=== PATIENT | female | born 2000 | race African-American/Black ===

== ENCOUNTER 2018-03-25 16:51 | Emergency (ER) | payer BC ==
[~2018-03-25] VITALS: Ht 160 cm; Wt 44.6 kg
[2018-03-25 17:08] VITALS: BP 107/65
== END 2018-03-25 23:00 | disposition left against medical advice (07) ==
LOC: ER 16:51
DX: Z53.21 Procedure and treatment not carried out due to patient leaving prior to being seen by health care provider (principal); J45.909 Unspecified asthma, uncomplicated

== ENCOUNTER 2019-06-09 15:20 | Emergency (ER) | payer MEDICAID ==
[~2019-06-09] VITALS: Ht 160 cm; Wt 48.0 kg
[2019-06-09] MEDS ORDERED: IBUPROFEN 400MG TABLET PO ONE (16:15)
[2019-06-09] MEDS ORDERED: TRAMADOL 50MG TABLET PO ONE (16:15)
[2019-06-09] MEDS ORDERED: ONDANSETRON 4MG ODT PO ONE (16:15)
[2019-06-09] MEDS ORDERED: LIDOCAINE HCL/PF 1% 10 MG/ML 5ML VIAL IJ ONE (17:00)
[2019-06-09 17:52] VITALS: BP 110/73
== END 2019-06-09 17:55 | disposition home or self-care (01) ==
LOC: ER 15:20
DX: S01.511A Laceration without foreign body of lip, initial encounter (principal); S80.12XA Contusion of left lower leg, initial encounter; S80.11XA Contusion of right lower leg, initial encounter; S00.83XA Contusion of other part of head, initial encounter; J45.909 Unspecified asthma, uncomplicated; V43.52XA Car driver injured in collision with other type car in traffic accident, initial encounter; W22.11XA Striking against or struck by driver side automobile airbag, initial encounter; Y93.89 Activity, other specified; Y92.488 Other paved roadways as the place of occurrence of the external cause
CPT/HCPCS: 12011; 70486; 73590; 81025; 99284; J3490; Q0162

== ENCOUNTER 2019-06-14 12:06 | Emergency (ER) | payer MEDICAID ==
[~2019-06-14] VITALS: Ht 160 cm; Wt 45.3 kg
[2019-06-14 12:14] VITALS: BP 86/55
== END 2019-06-14 14:31 | disposition home or self-care (01) ==
LOC: ER 12:06
DX: Z48.02 Encounter for removal of sutures (principal)
CPT/HCPCS: 99281

== ENCOUNTER 2022-05-08 18:17 | Emergency (ER) | payer SELFPAY ==
[~2022-05-08] VITALS: Ht 160 cm; Wt 75.0 kg
[2022-05-08 20:20] LABS: HEMATOCRIT. 39.1 % (36.0-48.0); HEMOGLOBIN. 13.4 g/dL (12.0-16.0); MEAN CORPUSCULAR HEMOGLOBIN 33.6 pg (28.0-32.0); MEAN CORPUSCULAR VOLUME 97.9 fL (81.0-99.0); MEAN PLATELET VOLUME 9.2 fl (7.4-10.4); PLATELET 275 x1000/uL (130-400); RED BLOOD CELL COUNT 3.99 mill/uL (4.2-5.4); RED CELL DISTRIBUTION WIDTH 12.8 % (11.6-14.6)
[2022-05-08 20:24] LABS: CHLORIDE 104 mEq/L (98-107)
[2022-05-08 20:51] LABS: B-HCG QUANTITATIVE 22664 mIU/mL (<3)
[2022-05-08] MEDS ORDERED: SODIUM CHLORIDE 0.9% 1,000 ML IV ONE (21:45)
[2022-05-08] MEDS ORDERED: ONDANSETRON HCL 4MG TABLET PO ONE (21:45)
[2022-05-08] MEDS ORDERED: ACETAMINOPHEN 325MG TABLET PO ONE (21:45)
[2022-05-08 22:52] LABS: PLATELET ESTIMATE NORMAL
[2022-05-08 23:15] LABS: CLARITY URINE CLOUDY (CLEAR); COLOR URINE YELLOW (YELLOW); KETONES URINE 4+ (NEGATIVE); LEUKOCYTE ESTERASE URINE 1+ (NEGATIVE); NITRITE URINE POSITIVE (NEGATIVE); OCCULT BLOOD URINE NEGATIVE (NEGATIVE); PROTEIN URINE TRACE (NEGATIVE); SPECIFIC GRAVITY URINE 1.031 (1.005-1.030)
[2022-05-09 03:00] VITALS: BP 108/74
[2022-05-09] MEDS ORDERED: CEPHALEXIN 250MG CAPSULE PO ONE (04:45)
[2022-05-09] MEDS ORDERED: ONDANSETRON 4MG ODT PO ONE (09:00)
[2022-05-09] MEDS ORDERED: ONDA4TAB50 MT (10:52)
[2022-05-09] MEDS ORDERED: CEPH500C2 MT (10:52)
== END 2022-05-09 11:30 | disposition home or self-care (01) ==
LOC: ER 18:17
DX: O20.0 Threatened abortion (principal); Z3A.01 Less than 8 weeks gestation of pregnancy; O99.511 Diseases of the respiratory system complicating pregnancy, first trimester
CPT/HCPCS: 36415; 72195; 74181; 76801; 80053; 81003; 81025; 84702; 85025; 86850; 86900; 86901; 96360; 99284; J7030; Q0162; Z7610

== ENCOUNTER 2022-11-23 06:10 | Inpatient (IN) | payer MEDICAID ==
[~2022-11-23] VITALS: Ht 167.6 cm; Wt 73.0 kg
[~2022-11-23 06:10] MED LIST: CEPH500C2 MT; ONDA4TAB50 MT
[2022-11-23] MEDS ORDERED: MORPHINE SULFATE 4 MG/ML CPJ (NOT FOR IM USE) IV STA (06:39)
[2022-11-23] MEDS ORDERED: ONDANSETRON HCL 4MG/2ML INJ IV STA (06:39)
[2022-11-23] MEDS ORDERED: SODIUM CHLORIDE 0.9% 500 ML IV ONE (06:45)
[2022-11-23 07:02] LABS: BASOPHILS % 0.4 % (0.0-2.0); EOSINOPHILS % 0.9 % (0.0-5.0); HEMATOCRIT. 28.6 % (36.0-48.0); HEMOGLOBIN. 9.3 g/dL (12.0-16.0); LYMPHOCYTES % 33.5 % (20.0-50.0); MEAN CORPUSCULAR HEMOGLOBIN 28.8 pg (28.0-32.0); MEAN CORPUSCULAR HGB CONC 32.5 g/dL (31.0-37.0); MEAN CORPUSCULAR VOLUME 88.5 fL (81.0-99.0); MEAN PLATELET VOLUME 9.5 fl (7.4-10.4); MONOCYTES % 10.7 % (2.0-8.0); NEUTROPHILS % 54.5 % (40.0-76.0); PLATELET 212 x1000/uL (130-400); RED BLOOD CELL COUNT 3.23 mill/uL (4.2-5.4); RED CELL DISTRIBUTION WIDTH 15.3 % (11.6-14.6); WHITE BLOOD COUNT 8.3 x1000/uL (4.5-11.0)
[2022-11-23 07:09] LABS: CHLORIDE 110 mEq/L (98-107); INDEX HEMOLYSI 1 (1-3); INDEX ICTERIC 1 (1-4); INDEX LIPEMIC 1 (1-3); SODIUM 139 mEq/L (136-145)
[2022-11-23 07:17] LABS: ALANINE AMINOTRANSFERASE 11 IU/L (13-61); ALBUMIN 2.5 g/dL (3.4-5.0); ASPARTATE AMINOTRANSFERASE 13 IU/L (15-37); BILIRUBIN TOTAL 0.4 mg/dL (0.1-1.0); CALCIUM 8.8 mg/dL (8.5-10.1); CARBON DIOXIDE 24 mEq/L (21-32); CREATININE 0.7 mg/dL (0.6-1.3); GLUCOSE 85 mg/dL (70-105); PROTEIN TOTAL 6.1 g/dL (6.0-8.3); UREA NITROGEN BLOOD 12 mg/dL (7-21)
[2022-11-23] MEDS ORDERED: METOCLOPRAMIDE HCL 10MG/2ML VIAL IV ONE (09:00)
[2022-11-23] MEDS: LACTATED RINGERS 1,000 ML IV SCH (11:00)
[2022-11-23] MEDS ORDERED: LIDOCAINE HCL 1% 20ML VIAL (Pyxis) INJ INFIL SCH (11:00)
[2022-11-23] MEDS ORDERED: MAGNESIUM 4 G PREMIX 100 ML IV NR (11:00)
[2022-11-23] MEDS ORDERED: OXYTOCIN 30 UNITS/500ML NS PMX 500 ML IV SCH (11:00)
[2022-11-23] MEDS ORDERED: NALOXONE HCL 0.4 MG/ML 1ML VIAL IM PRN (11:00)
[2022-11-23] MEDS ORDERED: LABETALOL HCL 5MG/ML VIAL 20ML IV PRN ×3 (11:15)
[2022-11-23] MEDS ORDERED: HYDRALAZINE 20MG/ML VIAL IV PRN (11:15)
[2022-11-23] MEDS: MAGNESIUM 20 G PREMIX (L & D) 500 ML IV SCH ×2 (11:38→21:15)
[2022-11-23 12:40] LABS: CLARITY URINE CLEAR (CLEAR); COLOR URINE YELLOW (YELLOW); GLUCOSE URINE NEGATIVE (NEGATIVE); KETONES URINE NEGATIVE (NEGATIVE); LEUKOCYTE ESTERASE URINE NEGATIVE (NEGATIVE); NITRITE URINE NEGATIVE (NEGATIVE); OCCULT BLOOD URINE TRACE (NEGATIVE); PROTEIN URINE 4+ (NEGATIVE); UROBILINOGEN URINE 0.2 E.U./dL (0.2-1.0)
[2022-11-23 12:52] LABS: BACTERIA URINE FEW; RBC URINE 0-2 /hpf (0-2); SQUAMOUS EPITHELIAL CELL URINE 1+ /lpf (RARE/1+); YEAST URINE NONE SEEN
[2022-11-23] MEDS ORDERED: BETAMETHASONE ACET/BETAMET 30 MG/5 ML VIAL IM SCH (13:00)
[2022-11-23 15:09] LABS: BASOPHILS % 0.3 % (0.0-2.0); EOSINOPHILS % 0.4 % (0.0-5.0); HEMOGLOBIN. 8.9 g/dL (12.0-16.0); LYMPHOCYTES % 20.1 % (20.0-50.0); MEAN CORPUSCULAR HEMOGLOBIN 29.3 pg (28.0-32.0); MEAN CORPUSCULAR HGB CONC 32.9 g/dL (31.0-37.0); MEAN CORPUSCULAR VOLUME 88.8 fL (81.0-99.0); MEAN PLATELET VOLUME 9.7 fl (7.4-10.4); MONOCYTES % 8.5 % (2.0-8.0); NEUTROPHILS % 70.7 % (40.0-76.0); PLATELET 205 x1000/uL (130-400); RED BLOOD CELL COUNT 3.04 mill/uL (4.2-5.4); RED CELL DISTRIBUTION WIDTH 15.2 % (11.6-14.6); WHITE BLOOD COUNT 8.4 x1000/uL (4.5-11.0)
[2022-11-23 15:19] LABS: D-DIMER 2.55 mg/L FEU (<0.50); INR 0.9; PARTIAL THROMBOPLASTIN TIME 24.9 sec (23.4-31.0); PROTHROMBIN TIME 9.4 sec (9.6-11.0)
[2022-11-23 15:20] LABS: *AMPHETAMINES SCREEN URINE NEGATIVE (NEGATIVE); *BARBITURATES SCREEN URINE NEGATIVE (NEGATIVE); *BENZODIAZEPINES SCREEN URINE NEGATIVE (NEGATIVE); *COCAINE SCREEN URINE NEGATIVE (NEGATIVE); CANNABINOID URINE SCREEN NEGATIVE (NEGATIVE); ECSTASY MDMA SCREEN URINE NEGATIVE (NEGATIVE); METHADONE URINE SCREEN NEGATIVE (NEGATIVE); PHENCYCLIDINE URINE SCREEN NEGATIVE (NEGATIVE)
[2022-11-23 15:22] LABS: CHLORIDE 109 mEq/L (98-107); INDEX HEMOLYSI 1 (1-3); INDEX ICTERIC 1 (1-4); INDEX LIPEMIC 1 (1-3); POTASSIUM 4.1 mEq/L (3.5-5.1); SODIUM 135 mEq/L (136-145)
[2022-11-23 15:27] LABS: OPIATES URINE SCREEN PRESUMTIVE POSITIVE (NEGATIVE)
[2022-11-23 15:43] LABS: ALANINE AMINOTRANSFERASE 14 IU/L (13-61); ALBUMIN 2.1 g/dL (3.4-5.0); ASPARTATE AMINOTRANSFERASE 15 IU/L (15-37); BILIRUBIN TOTAL 0.3 mg/dL (0.1-1.0); CALCIUM 7.8 mg/dL (8.5-10.1); CARBON DIOXIDE 23 mEq/L (21-32); CREATININE 0.6 mg/dL (0.6-1.3); GLUCOSE 92 mg/dL (70-105); PROTEIN TOTAL 5.4 g/dL (6.0-8.3); UREA NITROGEN BLOOD 10 mg/dL (7-21); URIC ACID 4.9 mg/dL (2.6-7.2)
[2022-11-23 15:59] LABS: HEPATITIS B SURFACE ANTIGEN NEGATIVE; RUBELLA IGG 130.7 IU/mL (4.99-10)
[2022-11-23 16:03] LABS: RAPID HIV SCREEN NEGATIVE (NEGATIVE)
[2022-11-24] MEDS: LACTATED RINGERS 1,000 ML IV SCH ×3 (00:51→21:13)
[2022-11-24] MEDS: ACETAMINOPHEN 325MG TABLET PO PRN ×2 (01:58→23:01)
[2022-11-24] MEDS ORDERED: LABETALOL HCL 5MG/ML VIAL 20ML IV PRN ×3 (04:30)
[2022-11-24] MEDS ORDERED: HYDRALAZINE 20MG/ML VIAL IV PRN (04:30)
[2022-11-24] MEDS ORDERED: FERR325T6 PO (04:52)
[2022-11-24] MEDS ORDERED: ACYC200C31 PO (04:52)
[2022-11-24] MEDS ORDERED: PNV1TABL50 PO (04:52)
[2022-11-24 06:29] LABS: CLARITY URINE CLEAR (CLEAR); COLOR URINE YELLOW (YELLOW); GLUCOSE URINE NEGATIVE (NEGATIVE); KETONES URINE NEGATIVE (NEGATIVE); LEUKOCYTE ESTERASE URINE NEGATIVE (NEGATIVE); NITRITE URINE NEGATIVE (NEGATIVE); OCCULT BLOOD URINE 2+ (NEGATIVE); PROTEIN URINE 3+ (NEGATIVE); SPECIFIC GRAVITY URINE 1.017 (1.005-1.030); UROBILINOGEN URINE 0.2 E.U./dL (0.2-1.0)
[2022-11-24 06:31] LABS: BACTERIA URINE NONE SEEN; RBC URINE 50-100 /hpf (0-2); SQUAMOUS EPITHELIAL CELL URINE 1+ /lpf (RARE/1+); YEAST URINE NONE SEEN
[2022-11-24 06:34] LABS: BASOPHILS % 0.3 % (0.0-2.0); HEMATOCRIT. 29.4 % (36.0-48.0); HEMOGLOBIN. 9.3 g/dL (12.0-16.0); MEAN CORPUSCULAR HGB CONC 31.8 g/dL (31.0-37.0); MEAN CORPUSCULAR VOLUME 88.1 fL (81.0-99.0); MONOCYTES % 4.6 % (2.0-8.0); NEUTROPHILS % 81.1 % (40.0-76.0); RED BLOOD CELL COUNT 3.33 mill/uL (4.2-5.4); RED CELL DISTRIBUTION WIDTH 14.9 % (11.6-14.6); WHITE BLOOD COUNT 11.2 x1000/uL (4.5-11.0)
[2022-11-24 06:36] LABS: DIFFERENTIAL COMMENT 1
[2022-11-24 06:46] LABS: D-DIMER 1.55 mg/L FEU (<0.50); INR 0.9; PARTIAL THROMBOPLASTIN TIME 23.5 sec (23.4-31.0); PROTHROMBIN TIME 9.3 sec (9.6-11.0)
[2022-11-24 07:08] LABS: PLATELET 223 x1000/uL (130-400)
[2022-11-24 07:25] LABS: CHLORIDE 107 mEq/L (98-107); INDEX HEMOLYSI 1 (1-3); INDEX ICTERIC 1 (1-4); INDEX LIPEMIC 1 (1-3); POTASSIUM 4.9 mEq/L (3.5-5.1); SODIUM 133 mEq/L (136-145)
[2022-11-24 13:51] LABS: ALBUMIN 2.3 g/dL (3.4-5.0); ASPARTATE AMINOTRANSFERASE 14 IU/L (15-37); BILIRUBIN TOTAL 0.2 mg/dL (0.1-1.0); CALCIUM 7.6 mg/dL (8.5-10.1); CARBON DIOXIDE 22 mEq/L (21-32); CREATININE 0.7 mg/dL (0.6-1.3); GLUCOSE 118 mg/dL (70-105); PROTEIN TOTAL 5.7 g/dL (6.0-8.3); UREA NITROGEN BLOOD 12 mg/dL (7-21); URIC ACID 4.8 mg/dL (2.6-7.2)
[2022-11-24 19:12] LABS: ALANINE AMINOTRANSFERASE 14 IU/L (13-61)
[2022-11-24] MEDS ORDERED: MISOPROSTOL 100MCG TABLET VG PRN (20:00)
[2022-11-24] MEDS: MISOPROSTOL 25 MCG TABLET VG PRN (20:34)
[2022-11-24] MEDS: AMPICILLIN 2GM in NS 100ML 100 ML IV SCH (21:09)
[2022-11-24] MEDS: MAGNESIUM 20 G PREMIX (L & D) 500 ML IV SCH (22:44)
[2022-11-25] MEDS: MISOPROSTOL 25 MCG TABLET VG PRN ×2 (00:25→04:43)
[2022-11-25] MEDS: AMPICILLIN 2GM in NS 100ML 100 ML IV SCH (02:52)
[2022-11-25] MEDS: LACTATED RINGERS 1,000 ML IV SCH ×2 (04:38→12:06)
[2022-11-25] MEDS ORDERED: ROPIVACAINE HCL/PF EPIDURAL 200 ML EPI ONE (04:43)
[2022-11-25] MEDS ORDERED: ROPIVACAINE HCL/PF EPIDURAL 200 ML EPI SCH (04:45)
[2022-11-25] MEDS ORDERED: LABETALOL HCL 5MG/ML VIAL 20ML IV PRN (05:00)
[2022-11-25 06:12] LABS: D-DIMER 2.09 mg/L FEU (<0.50); INR 0.8; PARTIAL THROMBOPLASTIN TIME 23.3 sec (23.4-31.0); PROTHROMBIN TIME 9.2 sec (9.6-11.0)
[2022-11-25 06:17] LABS: BASOPHILS % 0.1 % (0.0-2.0); DIFFERENTIAL COMMENT 0; HEMATOCRIT. 30.1 % (36.0-48.0); HEMOGLOBIN. 9.6 g/dL (12.0-16.0); LYMPHOCYTES % 9.5 % (20.0-50.0); MEAN CORPUSCULAR HEMOGLOBIN 28.4 pg (28.0-32.0); MEAN CORPUSCULAR HGB CONC 31.8 g/dL (31.0-37.0); MEAN CORPUSCULAR VOLUME 89.4 fL (81.0-99.0); MONOCYTES % 5.4 % (2.0-8.0); PLATELET 243 x1000/uL (130-400); RED BLOOD CELL COUNT 3.37 mill/uL (4.2-5.4); RED CELL DISTRIBUTION WIDTH 14.8 % (11.6-14.6); WHITE BLOOD COUNT 18.6 x1000/uL (4.5-11.0)
[2022-11-25 06:30] LABS: CHLORIDE 111 mEq/L (98-107); INDEX HEMOLYSI 1 (1-3); INDEX ICTERIC 1 (1-4); INDEX LIPEMIC 1 (1-3); POTASSIUM 4.6 mEq/L (3.5-5.1); SODIUM 136 mEq/L (136-145)
[2022-11-25 06:37] LABS: CLARITY URINE CLEAR (CLEAR); COLOR URINE YELLOW (YELLOW); GLUCOSE URINE NEGATIVE (NEGATIVE); KETONES URINE NEGATIVE (NEGATIVE); LEUKOCYTE ESTERASE URINE NEGATIVE (NEGATIVE); NITRITE URINE NEGATIVE (NEGATIVE); OCCULT BLOOD URINE 1+ (NEGATIVE); PROTEIN URINE 3+ (NEGATIVE); SPECIFIC GRAVITY URINE 1.018 (1.005-1.030); UROBILINOGEN URINE 0.2 E.U./dL (0.2-1.0)
[2022-11-25] MEDS ORDERED: OXYTOCIN 10 UNITS/ML 1ML ONE (06:38)
[2022-11-25] MEDS ORDERED: MORPHINE SULFATE/PF 1MG/ML 10ML AMP ONE (06:38)
[2022-11-25] MEDS ORDERED: FENTANYL CITRATE/PF 50MCG/ML 2ML VIAL ONE (06:38)
[2022-11-25] MEDS ORDERED: CEFAZOLIN SODIUM 1000MG/VIAL ONE (06:38)
[2022-11-25 06:39] LABS: ALANINE AMINOTRANSFERASE 15 IU/L (13-61); ALBUMIN 2.3 g/dL (3.4-5.0); ASPARTATE AMINOTRANSFERASE 11 IU/L (15-37); BILIRUBIN TOTAL 0.3 mg/dL (0.1-1.0); CALCIUM 7.2 mg/dL (8.5-10.1); CARBON DIOXIDE 21 mEq/L (21-32); CREATININE 0.7 mg/dL (0.6-1.3); GLUCOSE 125 mg/dL (70-105); PROTEIN TOTAL 6.2 g/dL (6.0-8.3); UREA NITROGEN BLOOD 13 mg/dL (7-21); URIC ACID 4.6 mg/dL (2.6-7.2)
[2022-11-25 06:47] LABS: BACTERIA URINE NONE SEEN; RBC URINE 15-25 /hpf (0-2); SQUAMOUS EPITHELIAL CELL URINE NONE SEEN /lpf (RARE/1+); YEAST URINE NONE SEEN
[2022-11-25] MEDS ORDERED: DIPHENHYDRAMINE 50MG/ML VIAL ONE (07:10)
[2022-11-25] MEDS: MAGNESIUM 20 G PREMIX (L & D) 500 ML IV SCH (07:57)
[2022-11-25] MEDS ORDERED: MAGNESIUM 20 G PREMIX (L & D) 500 ML IV SCH (08:00)
[2022-11-25] MEDS ORDERED: IBUPROFEN 400MG TABLET PO PRN (08:15)
[2022-11-25] MEDS ORDERED: NALOXONE HCL 0.4 MG/ML 1ML VIAL IV PRN (08:15)
[2022-11-25] MEDS ORDERED: DIPHENHYDRAMINE 50MG/ML VIAL IV PRN (08:15)
[2022-11-25] MEDS ORDERED: DIPHENHYDRAMINE 25MG CAPSULE PO PRN (08:15)
[2022-11-25] MEDS ORDERED: HYDROMORPHONE HCL/PF 2MG/ML CPJ IM PRN (08:15)
[2022-11-25] MEDS ORDERED: BISACODYL 10MG SUPP PR PRN (08:15)
[2022-11-25] MEDS: PRENATAL VIT/FE FUMARATE/FA TABLET PO SCH (09:00)
[2022-11-25] MEDS ORDERED: DEXTROSE 10% WATER 4 ML IV SCH (09:30)
[2022-11-25] MEDS ORDERED: PHYTONADIONE 1MG/0.5ML AMP IM SCH (09:30)
[2022-11-25] MEDS ORDERED: ERYTHROMYCIN BASE 0.5% OPHTH OINT UD BOTHEYE SCH (09:30)
[2022-11-25] MEDS ORDERED: DEXTROSE 10% WATER 270 ML IV SCH (09:30)
[2022-11-25 14:30] VITALS: BP 138/70; PULSE 100; RESP 20; TEMP 98.9; O2SAT 97
[2022-11-25 17:00] VITALS: BP 147/86; PULSE 74; RESP 18; TEMP 98.6
[2022-11-25 19:30] VITALS: BP 151/93; PULSE 72; RESP 18; TEMP 98.4; O2SAT 97
[2022-11-25 20:45] VITALS: BP 140/81; PULSE 69; RESP 18
[2022-11-26] VITALS (7 sets, daily range): BP systolic 128–155; BP diastolic 78–88; PULSE 62–86; RESP 18; TEMP 98.3–99.1; O2SAT 96–97
[2022-11-26] MEDS ORDERED: ONDANSETRON HCL 4MG/2ML INJ IV PRN (00:30)
[2022-11-26] MEDS: LABETALOL HCL 100MG TABLET PO SCH ×2 (02:47→17:06)
[2022-11-26] MEDS: LACTATED RINGERS 1,000 ML IV SCH (04:31)
[2022-11-26 06:26] LABS: BASOPHILS % 0.2 % (0.0-2.0); HEMOGLOBIN. 7.4 g/dL (12.0-16.0); LYMPHOCYTES % 15.7 % (20.0-50.0); MEAN CORPUSCULAR HEMOGLOBIN 28.3 pg (28.0-32.0); MEAN CORPUSCULAR VOLUME 88.4 fL (81.0-99.0); MEAN PLATELET VOLUME 9.7 fl (7.4-10.4); MONOCYTES % 10.3 % (2.0-8.0); NEUTROPHILS % 73.8 % (40.0-76.0); PLATELET 177 x1000/uL (130-400); RED BLOOD CELL COUNT 2.61 mill/uL (4.2-5.4); RED CELL DISTRIBUTION WIDTH 14.9 % (11.6-14.6); WHITE BLOOD COUNT 11.9 x1000/uL (4.5-11.0)
[2022-11-26] MEDS: PRENATAL VIT/FE FUMARATE/FA TABLET PO SCH (09:08)
[2022-11-26] MEDS: FERROUS SULFATE 325MG TABLET PO SCH ×3 (09:09→17:06)
[2022-11-26] MEDS: IBUPROFEN 800MG TABLET PO PRN ×2 (11:40→21:15)
[2022-11-27] MEDS: ACETAMINOPHEN 325MG TABLET PO PRN ×2 (02:06→08:21)
[2022-11-27 02:10] VITALS: BP 165/66; PULSE 66; RESP 18; TEMP 98.4
[2022-11-27 02:40] VITALS: BP 165/75; PULSE 67; RESP 18; TEMP 98.6
[2022-11-27] MEDS: IBUPROFEN 800MG TABLET PO PRN ×3 (03:19→20:28)
[2022-11-27] MEDS: LABETALOL HCL 200MG TABLET PO SCH ×2 (03:20→15:37)
[2022-11-27 08:15] VITALS: BP 163/93; PULSE 96; RESP 18; TEMP 99.4; O2SAT 97
[2022-11-27] MEDS: FERROUS SULFATE 325MG TABLET PO SCH (08:21)
[2022-11-27] MEDS: PRENATAL VIT/FE FUMARATE/FA TABLET PO SCH (08:21)
[2022-11-27 16:00] VITALS: BP 151/86; PULSE 77; RESP 18; TEMP 98.6
[2022-11-27 20:00] VITALS: BP 130/79; PULSE 84; RESP 18; TEMP 98.6; O2SAT 98
[2022-11-27] MEDS: AMLODIPINE 5MG TABLET PO SCH (20:29)
[2022-11-27] MEDS ORDERED: BISACODYL 10MG SUPP PR NR (22:30)
[2022-11-27 23:30] VITALS: BP 141/84; PULSE 82; RESP 18
[2022-11-28] MEDS: LABETALOL HCL 200MG TABLET PO SCH (02:49)
[2022-11-28] MEDS: IBUPROFEN 800MG TABLET PO PRN (02:49)
[2022-11-28 03:00] VITALS: BP 117/69; PULSE 82; RESP 18; TEMP 98.8
[2022-11-28] MEDS ORDERED: IBUP-2030 MT (07:23)
[2022-11-28 08:30] VITALS: BP 122/85; PULSE 85; RESP 18; TEMP 98.2; O2SAT 98
[2022-11-28 08:50] VITALS: BP 122/85; PULSE 85; RESP 18; TEMP 98.2
[2022-11-28 09:30] VITALS: BP 116/72
[2022-11-28] MEDS: PRENATAL VIT/FE FUMARATE/FA TABLET PO SCH (13:30)
[2022-11-28] MEDS: AMLODIPINE 5MG TABLET PO SCH (13:30)
[2022-11-28] MEDS: FERROUS SULFATE 325MG TABLET PO SCH (13:30)
[2022-11-29 08:07] LABS: OPIATES CONFIRMATION URINE Positive (.)
== END 2022-11-28 15:00 | disposition home or self-care (01) | DRG 540 ==
LOC: 8 EST LDRP 06:10 → OBSVTOIN 06:10 → ER 06:10 → EDSTATUS 10:29 → 8EST 11-25 13:35
PROVIDERS: ADMIT Obstetrics & Gynecology; ATTEND Obstetrics & Gynecology
PROC: 10D00Z1 Extraction of Products of Conception, Low, Open Approach (ICD-10-PCS; principal; 2022-11-25)
DX: O13.4 Gestational [pregnancy-induced] hypertension without significant proteinuria, complicating childbirth (principal); D62 Acute posthemorrhagic anemia; Z37.0 Single live birth; O69.1XX0 Labor and delivery complicated by cord around neck, with compression, not applicable or unspecified; Z3A.34 34 weeks gestation of pregnancy; O34.13 Maternal care for benign tumor of corpus uteri, third trimester; O99.02 Anemia complicating childbirth; D25.0 Submucous leiomyoma of uterus; O76 Abnormality in fetal heart rate and rhythm complicating labor and delivery
CPT/HCPCS: 36415; 76805; 76818; 80053; 80305; 80361; 81003; 83735; 84550; 85025; 85379; 85384; 86592; 86703; 86762; 86850; 86900; 86920; 87340; 88307; 96372; 99281; 99285; J0290; J0690; J0702; J1170; J1200; J2270; J2274; J2405; J2765; J2795; J3010; J3475; J3490; J7030; J7120; A4315; J2590